=== PATIENT | female | born 1985 | race Caucasian/White ===

== ENCOUNTER 2017-08-26 19:24 | Emergency (ER) | payer OTHER ==
[~2017-08-26] VITALS: Ht 160 cm; Wt 49.9 kg
[2017-08-26 19:24] VITALS: BP 123/96
--- NOTE | 2017-08-26 22:02 | NUR ---
XRAY AT BS
== END 2017-08-26 23:35 | disposition home or self-care (01) ==
LOC: ER 19:32
DX: S92.424A Nondisplaced fracture of distal phalanx of right great toe, initial encounter for closed fracture (principal); W20.8XXA Other cause of strike by thrown, projected or falling object, initial encounter; Y93.89 Activity, other specified; Y92.89 Other specified places as the place of occurrence of the external cause; Y99.8 Other external cause status
CPT/HCPCS: 73630; 93971; 99284; A4606; Z7610